=== PATIENT | male | born 1945 | race Caucasian/White ===

== ENCOUNTER → 2023-11-26 | Outpatient (CLI) | payer OTHER ==
[~2023-11-26] MED LIST: ACET-66 PO; AMLO-257 PO; ASCO500T20 PO; ASPI-1197 PO; CETI10TA57 PO; CLOP-31 PO; FURO20TA4 PO; LOSA50TA64 PO; METF-444 PO; METOPROLOL PO; PHILLIPS PROBIOTIC PO; POTA-183 PO; POTA99TA4 PO; SIMV-43 PO; VITA1CAP85 PO; fluticasone PO
== END | disposition home or self-care (01) ==
LOC: RAH 09:16
PROVIDERS: ATTEND Internal Medicine
DX: J18.0 Bronchopneumonia, unspecified organism (principal); M47.814 Spondylosis without myelopathy or radiculopathy, thoracic region
CPT/HCPCS: 71046

== ENCOUNTER → 2024-02-29 | Outpatient (CLI) | payer OTHER | END | disposition home or self-care (01) | LOC: RAH 13:36 | PROVIDERS: ATTEND Internal Medicine | DX: M47.26 Other spondylosis with radiculopathy, lumbar region (principal); M48.07 Spinal stenosis, lumbosacral region; M43.26 Fusion of spine, lumbar region | CPT/HCPCS: 72100 ==

== ENCOUNTER → 2024-03-11 | Outpatient (CLI) | payer OTHER | END | disposition home or self-care (01) | LOC: RAH 08:26 | PROVIDERS: ATTEND Internal Medicine | DX: S33.120A Subluxation of L2/L3 lumbar vertebra, initial encounter (principal); M48.061 Spinal stenosis, lumbar region without neurogenic claudication; M47.26 Other spondylosis with radiculopathy, lumbar region; X58.XXXA Exposure to other specified factors, initial encounter; Y93.89 Activity, other specified; Y92.89 Other specified places as the place of occurrence of the external cause; Y99.8 Other external cause status | CPT/HCPCS: 72148 ==

== ENCOUNTER → 2024-03-25 | Outpatient (CLI) | payer OTHER | END | disposition home or self-care (01) | LOC: RAH 13:36 | PROVIDERS: ATTEND Internal Medicine | DX: I10 Essential (primary) hypertension (principal) | CPT/HCPCS: 71046 ==

== ENCOUNTER → 2024-08-09 | Outpatient (CLI) | payer OTHER ==
--- NOTE | 2024-08-09 15:10 | HMCIMG ---
LUMBAR SPINE RADIOGRAPHS - 2-3 VIEWS INDICATION: Worsening chronic back pain COMPARISON: 03/11/2024 MR lumbar spine FINDINGS: AP, lateral views. Normal lordotic curvature of the lumbar spine is maintained. Shallow lumbar levoscoliosis. Five nonrib-bearing lumbar vertebral bodies are noted. No acute fracture or subluxation identified. Vertebral body heights are well-maintained. Moderate to severe disc height loss at the L5-S1 level and more pronounced severe disc height loss at the L1-L2 level with chronic degenerative endplate changes and mild vacuum disc phenomenon. Chronic degenerative endplate changes also noted at the L2-L3 level. Multilevel moderate anterior plate osteophytic spurring. Multilevel mild to moderate bilateral facet disease. L2-L4 fusion hardware appears normal. Mild calcific plaque is noted along the abdominal aortic and iliac vessel reynolds without aneurysmal dilation. IMPRESSION: No fracture or subluxation identified.
== END | disposition home or self-care (01) ==
LOC: RAH 13:47
PROVIDERS: ATTEND Internal Medicine
DX: M47.816 Spondylosis without myelopathy or radiculopathy, lumbar region (principal); M41.86 Other forms of scoliosis, lumbar region; M54.50 Low back pain, unspecified; M25.78 Osteophyte, vertebrae; I70.0 Atherosclerosis of aorta
CPT/HCPCS: 72100